=== PATIENT | male | born 1940 | race Hispanic/Latino ===

== ENCOUNTER 2017-06-11 10:24 | Observation (INO) | payer OTHER ==
[2017-06-11] VITALS (11 sets, daily range): BP systolic 134–187; BP diastolic 88–100; TEMP 97.3–98.5; Ht 182.9 cm; Wt 81.2 kg
[~2017-06-11] VITALS: Ht 182.9 cm; Wt 81.2 kg
[2017-06-11] MEDS ORDERED: LISI20TA11 PO (10:49)
[2017-06-11] MEDS ORDERED: HYDROCHLOROT12.5 M1 PO (10:50)
[2017-06-11 11:19] LABS: POTASSIUM 3.9 mmol/L (3.6-5.2); SODIUM 137 mmol/L (136-145)
[2017-06-11 11:27] LABS: PLATELET COUNT 183 K/uL (142-355)
[2017-06-11 11:44] LABS: PARTIAL THROMBOPLASTIN TIME 24.9 SECONDS (24.5-33.6)
[2017-06-12] VITALS: BP 123/78; TEMP 98.1
[2017-06-12 03:44] LABS: PLATELET COUNT 152 K/uL (142-355)
[2017-06-12 03:50] LABS: POTASSIUM 3.7 mmol/L (3.6-5.2); SODIUM 139 mmol/L (136-145)
[2017-06-12 04:00] VITALS: BP 139/86; TEMP 98.4
[2017-06-12 08:00] VITALS: BP 148/77; TEMP 98.2
[2017-06-12 12:00] VITALS: BP 139/76; TEMP 98.6
--- NOTE | 2017-06-12 14:30 | NUR ---
DISCHARGE ORDERS RECEIVED, REVIEWED ALL INSTRUCTIONS WITH PATIENT AND FAMILY. IV REMOVED, BANDAID APPLIED.
--- NOTE | 2017-06-12 14:45 | NUR ---
PATIENT ESCORTED TO HOSPITAL EXIT AND DISCHARGD HOME WITH IN STABLE CONDITION.
== END 2017-06-12 14:48 | disposition home or self-care (01) ==
LOC: ED 10:24 → MED/SURG 12:37
PROVIDERS: Internal Medicine; ADMIT Specialist
DX: R07.89 Other chest pain (principal); I10 Essential (primary) hypertension; K21.9 Gastro-esophageal reflux disease without esophagitis
CPT/HCPCS: 36415; 80053; 82550; 83880; 84484; 85027; 85379; 85610; 85730; 93005; 94760; 96365; 96372; 99220; 99284; G0378; J1650; J3411; J3475; J3490

== ENCOUNTER 2017-06-23 09:13 | Emergency (ER) | payer OTHER ==
[~2017-06-23] VITALS: Ht 182.9 cm; Wt 81.6 kg
[~2017-06-23 09:13] MED LIST: HYDROCHLOROT12.5 M1 PO; LISI20TA11 PO
[2017-06-23 09:26] VITALS: TEMP 98
[2017-06-23 12:25] VITALS: BP 138/75
== END 2017-06-23 12:25 | disposition home or self-care (01) ==
LOC: ED 09:13
DX: M54.2 Cervicalgia (principal); G89.29 Other chronic pain; R51 Headache
CPT/HCPCS: 36415; 96372; 99283; J1885

== ENCOUNTER 2017-08-31 08:42 | Emergency (ER) | payer OTHER ==
[~2017-08-31] VITALS: Ht 182.9 cm; Wt 81.6 kg
[2017-08-31 10:43] LABS: PLATELET COUNT 169 K/uL (142-355)
[2017-08-31 10:44] LABS: POTASSIUM 3.8 mmol/L (3.6-5.2)
[2017-08-31 12:42] VITALS: BP 158/88; TEMP 98.1
== END 2017-08-31 12:42 | disposition home or self-care (01) ==
LOC: ED 08:42
PROVIDERS: Emergency Medicine
DX: M19.071 Primary osteoarthritis, right ankle and foot (principal); M85.871 Other specified disorders of bone density and structure, right ankle and foot; M77.51 Other enthesopathy of right foot and ankle
CPT/HCPCS: 36415; 80053; 84550; 85027; 85651; 86140; 86430; 99283

== ENCOUNTER 2018-01-05 16:57 | Emergency (ER) | payer OTHER ==
[~2018-01-05] VITALS: Ht 182.9 cm; Wt 81.6 kg
[2018-01-05 17:36] LABS: PLATELET COUNT 169 K/uL (142-355)
[2018-01-05 17:44] LABS: POTASSIUM 4.3 mmol/L (3.6-5.2)
[2018-01-05 19:21] VITALS: BP 180/109; TEMP 98.5
== END 2018-01-05 19:26 | disposition home or self-care (01) ==
LOC: ED 16:57
DX: R53.81 Other malaise (principal); R63.0 Anorexia; R31.9 Hematuria, unspecified; Z85.46 Personal history of malignant neoplasm of prostate; J98.11 Atelectasis
CPT/HCPCS: 36415; 80053; 81000; 84154; 85027; 99283

== ENCOUNTER 2019-10-03 09:16 | Emergency (ER) | payer OTHER ==
[~2019-10-03] VITALS: Ht 182.9 cm; Wt 83.9 kg
[2019-10-03 09:26] VITALS: TEMP 98.1
[2019-10-03 10:14] LABS: PLATELET COUNT 201 K/uL (142-355); POTASSIUM 3.9 mmol/L (3.6-5.2)
[2019-10-03 11:15] VITALS: BP 187/90
== END 2019-10-03 11:16 | disposition home or self-care (01) ==
LOC: ED 09:16
PROVIDERS: Emergency Medicine
DX: K44.9 Diaphragmatic hernia without obstruction or gangrene (principal); K59.09 Other constipation; R10.13 Epigastric pain
CPT/HCPCS: 80053; 81000; 82150; 83690; 85027; 99283